=== PATIENT | female | born 1940 | race Caucasian/White ===

== ENCOUNTER → 2017-07-21 | Day surgery (SDC) | payer MEDICARE, OTHER ==
[~2017-07-21] VITALS: Ht 162.6 cm; Wt 73.9 kg
[2017-07-21] VITALS (8 sets, daily range): BP systolic 115–139; BP diastolic 47–60; PULSE 52–72; RESP 13–18; O2SAT 95–99
[~2017-07-21] MED LIST: ASPI-973 PO; Bupivacaine-MPF 0.5% 30 mL Inj INFILTRATE ONE; Dexamethasone 4 mg/mL Inj IVPUSH PRN; Dexamethasone 4 mg/mL Inj ONE; EPHEDrine Sulfate 50 mg/mL Inj IVPUSH PRN; EPHEDrine/NS 5 mg/mL 5 mL Syringe ONE; Glycopyrrolate 0.2 MG/ML 1mL Inj ONE; HYDROcodone-APAP 5-325 mg Tablet PO PRN; HYDROmorphone 1 mg/mL Inj IVPUSH PRN; Ketorolac 15 mg/mL Inj IVPUSH PRN; LEVO88TA4 PO; Lactated Ringer's 1,000 ML IV ONE; Lactated Ringer's 1,000 ML IV SCH; Lactated Ringer's 500 ML IV PRN; METO25TA6 PO; MetoCLOpramide 5 mg/mL 2 mL Inj IVPUSH PRN; Neostigmine 1 mg/mL 10 mL Inj ONE; OMEP20TA86 PO; Ondansetron 2 mg/mL 2 mL Inj IVPUSH PRN; Ondansetron 2 mg/mL 2 mL Inj ONE; Phenylephrine 10,000 mCg/mL Inj IVPUSH PRN; Propofol 10,000 mCg/mL 20 mL Inj ONE; Rocuronium 10 mg/mL 5 mL Inj ONE; fentaNYL-PF 50 mCg/mL 2 mL Inj IVPUSH PRN; fentaNYL-PF 50 mCg/mL 2 mL Inj ONE; vitamin d2
--- NOTE | 2017-07-21 07:20 | PCM.HPANE ---
Patient Data Surgeon Admitting Provider: Attending Provider:Sunil Mayen MD Primary Care Physician:Jose Salazar MD Other Provider:Leyla Aguilaringham Anesthesia Reason for Visit Hyperparathyroidism Ht/WT & BMI Height (Feet): 5 Height (Inches): 4.00 Weight (Kilograms): 73.930 Body Mass Index 27.00 Allergies Coded Allergies: Penicillins (Verified Allergy, Unknown, throat closes, hives, 07/14/17) Past Anesthesia History Anesthesia History: Denies:: Abnormal Airway, Anesthesia Reactions, Difficult Intubation, Fam Anesthesia Reaction, Fam Malignant Hypertherm, Malignant Hyperthermia Diabetes History Hx Diabetes?: No MRSA MRSA: No Medications Blood Thinner: Aspirin Hypertension Medication: Yes Home Meds Incl Beta Ashlyn: Yes (metroprolol) Date Beta Ashlyn Taken: Jul 21, 2017 Time Beta Ashlyn Taken: 444 Reported Medications Omeprazole 20 Mg Tablet.dr20 Mg PO DAILY 07/14/17 Metoprolol Tartrate 25 Mg [id number] Mg PO BID 30 Days Ref 0 07/14/17 Levothyroxine 88 Mcg [id number] Mcg PO DAILY Ref 0 07/14/17 [vitamin d2] No Conflict Check50,000 Units WEEKLY 07/14/17 Aspirin 81 Mg [id number] Mg PO DAILY Ref 0 07/14/17 History History of ENT Problems?: No HEENT History: Positive for:: Cataracts (bilateral surgery) Denies:: Abnormal Airway Difficult Intubation Dysphagia Glaucoma Hearing Problem Sinus Problem TMJ Denture Type: None Teeth Condition: Within Normal Limits Hx of Heart Problems?: Yes Cardiovascular History: Positive for:: Atrial Fibrillation (PAF) Hypertension Irregular Heartbeat Denies:: AICD Heart Murmur Pacemaker Peripheral Vascular Rheumatic Fever Thrombophlebitis Valvular Heart Disease Other Cardiac History: Poor exercise tolerance. Likely <4 mets. 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 Skin History: Denies:: History Skin Disorders? Pressure Ulcers Hx Musculoskeletal Problems?: Yes Musculoskeletal History: Positive for:: Back Injury (hx of L3 fx, lumbar sympathectomies ) Osteoarthritis Denies:: Fibromyalgia Joint Replacement Musculoskeletal Trauma Myasthenia Gravis Systemic Lupus Hx of Psycho/Social Problems?: No Psycho Social History: Denies:: Anxiety Hx Depression Hx Surgeries?: Yes Hx Any Other Health Problems?: Yes Other History: Denies:: Cancer Thyroid Disease (parathyroid current admission problem) History Blood Transfusions: Positive for:: Accept Blood Products? Denies:: Blood Transfusions Hx Diabetes: No Hx Alcohol Use: YesAlcoholic Drinks Per Day: one drink monthly, holidaysHx Substance Use: NoHave You Smoked inLast 12 mo: No Stop/Bang S-Snoring: Do You Snore Loudly: No T-Tired: feel tired, fatigued: No O-Obsered: Observed not breath: No P-Blood Pressure: treated: Yes B- Body Mass Index > 35 kg/m2: No A- Age over 50: Yes N- Neck Large Circumference: No G- Gender Male: No ENA Total Score: 2 Risk Assessment Category Category 1A: Patient has history of documented sleep apnea, and HAS NOT received any narcotic, sedative or anesthesia administration during this stay. Category 1B: Patient has history of documented sleep apnea, and HAS received any narcotic , sedative or anesthesia administration during this stay Category 2: Patient has SUSPECTED Obstructive Sleep Apnea, and HAS received any narcotic , sedative or anesthesia administration during this stay. Category 3: Patient has SUSPECTED Obstructive Sleep Apnea and HAS NOT received narcotic, sedative or anesthesia administration during this stay. Category 4: Outpatient in Procedural Areas with known sleep apnea or who screen positive for High Risk via the STOP/BANG questionnaire. Exam Exam Vital Signs Vital Signs Date Time Temp Pulse Resp B/P Pulse Ox O2 Delivery O2 Flow Rate FiO2 07/21/17 06:26 36.6 52 18 135/57 97 Room Air General Appearance: Alert, Oriented X3, Cooperative, No Acute Distress HEENT/AIRWAY: MP 2 Lungs: Normal Air Movement Heart: Other (IRIR) Meds/Labs/Diagnostics Admission Meds Current Medications Lactated Ringer's (Lr) 1,000 ml @ ud STK-MED ONCE IV Last administered on t 06:25; Start 07/21/17 at 06:25; Stop 07/21/17 at 06:26; Status DC Plan Impression Patient chart reviewed, patient interviewed and anesthestic plan with risks, benefits, and alternatives discussed, and informed consent obtained. NPO per Anesth. Guidelines: Yes ASA Physical Status: ASA3 Severe Disease Anesthetic Plan: GA Bene/Risks/Altern/Consents: Yes HP Complete Prior to Induction: Yes Other Extensive discussion with pt about risks of prolonged intubation due to cardiopulmonary disease Krishan Dowd MD Jul 21, 2017 07:20
--- NOTE | 2017-07-21 08:35 | PCM.DISURG ---
Surgical Discharge Instruction Date of Service Jul 21, 2017 Dates of Hospitalization Date of Hospital Admission Providers Admitting Physician: Primary Care Physician: Jose Salazar MD Attending Physician: Sunil Mayen MD Discharge Diagnosis Discharge Diagnosis Hyperparathyroidism, right superior parathyroid adenoma Diet Discharge Diet: No restrictions Activity Discharge Activity-General: No restrictions, Activity as pain allows Dressing and Incisional Care Dressing Instructions: Dermabond will peel off gradually Hygiene: May shower Additional Instructions Discharge Instructions If you have having paresthesias, meaning tingling of the hands or feet, take a chewable Tums tablet, every 4 hours as needed. Follow Up Plan Follow Up Plan In the Gen. surgery [facility] postoperative clinic in 2-3 weeks for a wound check. Call your provider for: Fever (over 101.5), Discharge @ incision, pus discharge Sunil Mayen MD Jul 21, 2017 08:35
--- NOTE | 2017-07-21 08:43 | PCM.SURGOP ---
Surgical Operative Report Date of Service: Jul 21, 2017 Pre Operative Diagnosis Primary hyperparathyroidism, prior radioactive iodine thyroid ablation Post Operative Diagnosis Same, right superior parathyroid adenoma Procedure: Parathyroid exploration, excision of right superior parathyroid adenoma Surgeon and Elementary Secretary: Surgeon: Sunil Mayen MD Assistants: Dudley Baig PA-C Indication for Procedure 77-year-old woman who was found to have primary hyperparathyroidism, with a PTH level as high as 217, with a calcium of 11.1. Imaging studies were initially thought to be equivocal, but on further review, looked consistent with a right superior parathyroid adenoma on both nuclear medicine scan and CT scan. Based on the posterior position, a right superior parathyroid adenoma was suspected. She had prior radioactive iodine ablation 2 for Graves' disease. After discussion of risks and benefits, she agreed to proceed with parathyroid exploration. Findings: There was a right superior parathyroid adenoma, which measured 2.1 x 1.6 x 0.9 cm ex vivo, which would correlate with an approximately 1.5 g adenoma. There was no visible thyroid tissue. Procedure Details After smooth induction of general endotracheal anesthesia, she was placed in the modified beachchair position with the neck extended, and was prepped and draped in a wide sterile fashion. A procedural polyps was performed according to the SCOAP checklist, and all were found to be in agreement. A transverse collar incision was made 1 fingerbreadth above the sternal notch. Dissection was carried through the subcutaneous tissue until the platysma muscle was divided. Subplatysmal skin flaps were raised superiorly and inferiorly. The median raphae was incised. The right-sided strap muscles were sequentially elevated. There was no visible thyroid tissue. The right internal jugular vein was visualized, and a blood sample was drawn using a 27-gauge needle for stat PTH level has a baseline sample. The thyroid cartilage and trachea were retracted, and dissection was continued posteriorly to the spine. The right recurrent laryngeal nerve was probably visualized, and it actually draped over the anterior medial aspect of the parathyroid adenoma. It was meticulously dissected off the adenoma. The parathyroid adenoma was then dissected free from the surrounding tissues using the LigaSure device. The entire adenoma was excised intact. There was a tiny amount of cystic tissue along its inferior aspect, which was also resected. The adenoma had a vascular pedicle coming from the superior aspect, which was divided with the LigaSure device. Ex vivo, it measured 2.1 x 1.6 x 0.9 cm. It was sent for permanent pathology. Hemostasis was adequate. The right inferior parathyroid gland was not visualized. The strap muscles were reapproximated with interrupted 3-0 Vicryl suture. The platysma muscle was closed with interrupted 3-0 Vicryl suture. The skin incision was closed with a running 4-0 Monocryl subcuticular stitch. Dermabond was applied to the skin as a dressing. Stat PTH was drawn in the recovery room. At the end of the case all needle and sponge counts were correct 2. She was awakened from anesthesia without difficulty, and taken to the recovery room in satisfactory condition, having tolerated the procedure well. Complications There were no periprocedural complications identified. Surgical Specimen Removed: Yes Specimen sent to Pathology: Yes Surgical Specimen description: Right superior parathyroid adenoma Anesthetic Plan: GA Grafts, Implants: None Output, Estimated Blood Loss: 10 Blood Administration during smyth: No Drains: None Catheters: None copies to: Jose Salazar MD; Shaka Flanagan Joshua D MD Jul 21, 2017 08:43
--- NOTE | 2017-07-21 09:48 | PCM.ANEP1 ---
Post Anesthesia PACU Phase 1 Assessment Vital Signs Vital Signs Date Time Temp Pulse Resp B/P Pulse Ox O2 Delivery O2 Flow Rate FiO2 07/21/17 09:12 64 16 124/47 96 Room Air 07/21/17 08:58 60 16 115/52 95 Room Air 07/21/17 08:50 36.0 61 15 122/52 96 Room Air 07/21/17 08:45 66 16 115/60 96 Room Air 07/21/17 08:40 72 13 125/54 99 Simple Mask 9 07/21/17 08:35 35.9 139/58 07/21/17 06:26 36.6 52 18 135/57 97 Room Air Anesthetic Administered: GA Level of Alertness: Awake, talking Pain: No Nausea or Vomiting: No CV Function & Hydration Stable: Yes Airway Device: None Lungs: Normal Air Movement PACU Phase 2 Assessment Complications: No Follow up Care: N/A Patient Instructions Provided: N/A Krishan Dowd MD Jul 21, 2017 09:48
--- NOTE | 2017-07-26 09:04 | PATH ---
SURGICAL PATHOLOGY Attending Physician:Carole Godinez CASE STATUS: Signed Out PATIENT NAME: FLY NÚÑEZ PID: [id number] : 1940 DATE COLLECTED:07/21/2017 20:26 SPECIMEN: Parathyroid Gland CLINICAL HISTORY: HYPERPARATHYROIDISM, EXCISION 1). RIGHT SUPERIOR PARATHYROID ADENOMA FINAL DIAGNOSIS: Designated as "Right Superior Parathyroid Adenoma", Excision: - Hypercellular parathyroid gland (1.3 grams). - No evidence of malignancy. ICD10: K35.1 GROSS DESCRIPTION: The specimen is received in formalin, labeled with the patient's name, sublabeled as right superior parathyroid adenoma, and consists of a wilson-yellow rubbery lobular parathyroid gland (1.3 g, 2.0 x 1.3 x 0.6 cm). The cut surface is homogenous and unremarkable. No nodules, masses or lesions are identified. Section code: (A-B) parathyroid gland, longitudinally sectioned. Specimen entirely submitted. 07/22/17 ICD-9 CODES: CPT CODES: 1: 96714 Electronically Signed Out Carter Lizama MD [facility] [address], [place] [address] Technical component performed at [facility], [address] [place] [address] Ave[address], [place], [address]
== END | disposition home or self-care (01) ==
LOC: SAS 05:42
PROVIDERS: ATTEND Student in an Organized Health Care Education/Training Program
DX: E21.0 Primary hyperparathyroidism (principal); I48.0 Paroxysmal atrial fibrillation; K21.9 Gastro-esophageal reflux disease without esophagitis; I10 Essential (primary) hypertension; G47.30 Sleep apnea, unspecified; E03.9 Hypothyroidism, unspecified; M81.0 Age-related osteoporosis without current pathological fracture; Z87.891 Personal history of nicotine dependence; Z79.82 Long term (current) use of aspirin
CPT/HCPCS: 36415; 60500; 83970; J1100; J2405; J2704; J2710; J3010; J7120